=== PATIENT | male | born 1960 | race Caucasian/White ===

== ENCOUNTER → 2018-03-24 | Outpatient (CLI) | payer BC ==
[~2018-03-24] MED LIST: ANAPROX DS550 MG PO; FLEXERIL5 MG PO; VICODIN 5/500 505 MG PO
[2018-03-24 09:17] LABS: BASO % 0.5 % (0.0-1.0); EOS # 0.2 10*3/uL (0.0-0.4); EOS % 2.9 % (1.0-4.0); HEMATOCRIT 44.3 % (42.0-52.0); HEMOGLOBIN 14.6 g/dl (14.0-18.0); LYMPH # 2.2 10*3/uL (1.3-4.4); LYMPH % 25.7 % (27.0-41.0); MEAN CELL VOLUME 86.9 fl (80.0-94.0); MEAN CORPUSCULAR HGB 28.6 pg (27.0-31.0); MEAN PLATELET VOLUME 10.4 fl (9.6-12.3); MONO # 0.6 10*3/uL (0.1-1.0); MONO % 6.8 % (3.0-9.0); NEUT # 5.4 10*3/uL (2.3-7.9); NEUT % 63.9 % (47.0-73.0); PLATELET COUNT AUTOMATED 157 10*3/uL (130-400); RED CELL DISTRI WIDTH 12.7 % (0-14.5); WHITE BLOOD COUNT 8.4 10*3/uL (4.8-10.8)
[2018-03-24 09:43] LABS: ALBUMIN 3.5 gm/dl (3.1-4.5); ALKALINE PHOSPHATASE 70 U/L (45-117); BILIRUBIN, DIRECT < 0.1 mg/dL (0.0-0.2); BUN 16 mg/dl (7-24); CHLORIDE 108 mmol/L (98-107); CHOLESTEROL 206 mg/dL (<200); CREATININE 1.38 mg/dL (0.70-1.30); HDL CHOLESTEROL 33 mg/dl (40-60); LDL CHOLESTEROL 131 mg/dL (9-159); POTASSIUM 4.1 mmol/L (3.5-5.1); SGOT/AST 26 IU/L (3-35); SGPT/ALT 62 U/L (12-78); SODIUM 143 mmol/L (136-145); TOTAL PROTEIN 7.2 gm/dL (6.4-8.2); TRIGLYCERIDES 212 mg/dl (<150); VLDL CHOLESTEROL 42 mg/dL (6-40)
== END | disposition home or self-care (01) ==
LOC: LAB 08:51
DX: Z01.818 Encounter for other preprocedural examination (principal); Z12.5 Encounter for screening for malignant neoplasm of prostate; R53.83 Other fatigue; R53.1 Weakness; I10 Essential (primary) hypertension; E78.5 Hyperlipidemia, unspecified

== ENCOUNTER → 2022-04-20 | Outpatient (CLI) | payer BC | END | disposition home or self-care (01) | LOC: RAD 07:58 | PROVIDERS: ATTEND Chiropractor | DX: M47.817 Spondylosis without myelopathy or radiculopathy, lumbosacral region (principal) ==

== ENCOUNTER → 2023-04-06 | Outpatient (CLI) | payer BC | END | disposition home or self-care (01) | LOC: MRI 01:09 | PROVIDERS: ATTEND Student in an Organized Health Care Education/Training Program | DX: M47.27 Other spondylosis with radiculopathy, lumbosacral region (principal); R29.2 Abnormal reflex; M48.061 Spinal stenosis, lumbar region without neurogenic claudication ==

== ENCOUNTER 2025-04-21 08:22 | Emergency (ER) | payer MEDICARE ==
[~2025-04-21] VITALS: Ht 180.3 cm; Wt 97.5 kg
[2025-04-21] MEDS ORDERED: Acetaminophen/Oxycodone 5 MG/325 MG TABLET PO ONE (09:50)
[2025-04-21] MEDS ORDERED: Ondansetron Hydrochloride 4 MG TAB PO ONE (09:50)
[2025-04-21] MEDS ORDERED: Dexamethasone Sodium Phospha 20 MG/5 ML VIAL IM ONE (12:25)
[2025-04-21] MEDS ORDERED: PREDNISONE20 M1 PO (12:30)
[2025-04-21] MEDS ORDERED: CEPHALEXIN500 M1 PO (12:30)
[2025-04-21] MEDS ORDERED: PERCOCET 5-3251 EACH PO (12:30)
[2025-04-21] MEDS ORDERED: COLCHICINE 0.6 MG TAB PO ONE ×2 (12:30)
[2025-04-21] MEDS ORDERED: Ondansetron4 MG PO (12:30)
== END 2025-04-21 12:46 | disposition home or self-care (01) ==
LOC: ED 08:22
DX: S90.31XA Contusion of right foot, initial encounter (principal); M10.071 Idiopathic gout, right ankle and foot; Z98.890 Other specified postprocedural states; W22.8XXA Striking against or struck by other objects, initial encounter; Y93.01 Activity, walking, marching and hiking; Y92.89 Other specified places as the place of occurrence of the external cause; Y99.8 Other external cause status

== ENCOUNTER → 2025-04-24 | Outpatient (CLI) | payer MEDICARE ==
[~2025-04-24] MED LIST changes: +CEPHALEXIN500 M1 PO; +Ondansetron4 MG PO; +PERCOCET 5-3251 EACH PO; +PREDNISONE20 M1 PO
== END ==
LOC: US 13:32
PROVIDERS: ATTEND Internal Medicine
DX: N28.1 Cyst of kidney, acquired (principal); N18.4 Chronic kidney disease, stage 4 (severe)